=== PATIENT | female | born 1945 | race African-American/Black ===

== ENCOUNTER 2017-09-23 11:44 | Observation (INO) | payer MEDICARE ==
--- NOTE | 2017-09-23 12:44 | CT ---
CT BRAIN WITHOUT CONTRAST: History: Altered mental status, slurred speech. FINDINGS: No evidence of acute infarct, hemorrhage, midline shift, or abnormal extraaxial fluid collections are seen. The ventricular size is normal and the basilar cisterns patent. The bony calvarium is intact. The visualized paranasal sinuses and mastoid air cells are well aerated. IMPRESSION: No CT evidence of acute intracranial process. Findings were discussed over the telephone with ER physician, Dr. Jose Welsh, at 12:21 p.m. POS: OFF
[2017-09-23 13:12] LABS: #Lymphocytes 1.7 thou/uL (1.20-3.40); #Neutrophils 11.3 thou/uL (1.40-6.50); %Basophils 0.3 % (0.0-1.0); %Eosinophils 0.1 % (0.0-10.0); %Lymphocytes 11.9 % (21.0-51.0); %Monocytes 7.2 % (0.0-10.0); %Neutrophils 80.6 % (42.0-75.0); Hemoglobin 15.1 g/dL (12.0-16.0); Mean Corpuscular HGB CONC 33.2 g/dL (32.0-36.0); Mean Corpuscular Volume 93.4 fl (81.0-99.0); Mean Platelet Volume 7.7 fL (7.4-10.4); Platelet Count 227 thou/uL (130-400); RBC Distribution Width 13.3 % (11.5-14.5); Red Blood Cell (RBC) Count 4.87 mill/uL (4.20-5.40)
[2017-09-23 13:35] LABS: ALT (SGPT) 31 U/L (8-55); AST (SGOT) 47 U/L (5-34); Albumin 4.4 g/dL (3.4-4.8); Alkaline Phosphatase 78 U/L (40-150); Anion Gap 17 mmol/L (10-20); BUN (Urea Nitrogen) 12 mg/dL (9.8-20.1); Bilirubin, Total 0.6 mg/dL (0.2-1.2); Calc. Creatinine Clearance 0 mL/min (70-130); Calcium 10.2 mg/dL (7.8-10.44); Carbon Dioxide 21 mmol/L (23-31); Chloride 104 mmol/L (98-107); Estimated GFR-MDRD 76; Glucose 97 mg/dL (83-110); Potassium 3.3 mmol/L (3.5-5.1); Protein, Total 7.4 g/dL (6.0-8.3); Sodium 139 mmol/L (136-145)
[2017-09-23 13:45] LABS: Troponin I 0.034 ng/mL (< 0.028)
[2017-09-23 13:46] LABS: Bilirubin Negative (Negative); Blood, Urine Moderate (Negative); Clarity CLEAR (Clear); Glucose, Urine (Dipstick) Negative (Negative); Leukocyte Trace (Negative); Nitrite Negative (Negative); Protein, Urine (Dipstick) 30 mg/dL (Neg-Trace); Specific Gravity, Urine 1.019 (1.002-1.036); Urobilinogen 0.2 mg/dL (0.2-1.0); pH, Urine 5.5 (5.0-9.0)
[2017-09-23 13:47] LABS: CKMB 8.6 ng/mL (0-6.6)
[2017-09-23 13:48] LABS: Bacteria/HPF None Seen HPF (None Seen); Pathc Cast-AUWi Flag 1.88 (0-2.49)
[2017-09-23] MEDS ORDERED: Acetaminophen 500 MG TAB ONE (13:48)
[2017-09-23 13:52] LABS: PTT 24.8 SEC (22.9-36.1); Prothrombin Time 13.2 SEC (12.0-14.7)
[2017-09-23 13:58] LABS: Hyaline Casts/LPF NONE SEEN LPF (0-3 Hyaline); Renal Epithelial None Seen HPF (0-3); Transitional Epithelial NONE SEEN HPF (0-3)
[2017-09-23] MEDS ORDERED: Adacel (T-DAP) 0.5 ML VIAL ONE (15:31)
[2017-09-23] MEDS ORDERED: Ondansetron HCl/PF 4 MG/2 ML Vial IVP PRN (17:11)
[2017-09-23] MEDS ORDERED: Acetaminophen 325 MG TAB PO PRN (17:11)
[2017-09-23] MEDS ORDERED: Ondansetron ODT 4 MG TAB PO PRN (17:11)
[2017-09-23 17:21] VITALS: BMI 17.7
[2017-09-23 17:40] LABS: Troponin I 0.033 ng/mL (< 0.028)
[2017-09-23] MEDS: HYDROcodone/Acetaminophen 5/325 mg Tablet PO PRN ×2 (18:03→22:12)
[2017-09-23] MEDS: hydrALAZINE 20 MG/ML VIAL SLOW IVP PRN (18:04)
[2017-09-23 18:11] LABS: CKMB 5.9 ng/mL (0-6.6)
[2017-09-23 19:44] LABS: Troponin I 0.045 ng/mL (< 0.028)
[2017-09-23] MEDS: Famotidine 20 MG TAB PO SCH (20:36)
[2017-09-24 01:42] LABS: CKMB 3.7 ng/mL (0-6.6); Troponin I 0.035 ng/mL (< 0.028)
[2017-09-24] MEDS: hydrALAZINE 20 MG/ML VIAL SLOW IVP PRN (01:49)
[2017-09-24] MEDS: HYDROcodone/Acetaminophen 5/325 mg Tablet PO PRN (03:02)
[2017-09-24] MEDS: Famotidine 20 MG TAB PO SCH (08:14)
[2017-09-24] MEDS ORDERED: Meloxicam 7.5 MG TAB PO SCH (09:00)
[2017-09-24] MEDS ORDERED: Non-Formulary Item 1 EACH (Baclofen [Baclofen] 20 MG) PO SCH (09:00)
[2017-09-24] MEDS ORDERED: Amlodipine 10 MG TAB PO SCH (09:00)
[2017-09-24] MEDS ORDERED: Non-Formulary Item 1 EACH (Rosuvastatin Calcium [Crestor] 40 MG) PO SCH (09:00)
[2017-09-24] MEDS ORDERED: Losartan 25 MG TAB PO SCH (09:00)
[2017-09-24] MEDS ORDERED: Non-Formulary Item 1 EACH (Levothyroxine Sodium [Synthroid] 137 MCG) PO SCH (09:00)
[2017-09-24] MEDS ORDERED: Non-Formulary Item 1 EACH (Losartan Potassium [Cozaar] 100 MG) PO SCH (09:00)
[2017-09-24] MEDS ORDERED: Baclofen 10 MG TAB PO SCH (09:00)
[2017-09-24 12:21] VITALS: TEMP 98.3
[2017-09-24 14:08] VITALS: BP 133/63
[2017-09-24] MEDS ORDERED: Rosuvastatin 20 MG TAB PO SCH (21:00)
[2017-09-25] MEDS ORDERED: Levothyroxine Sodium 112 MCG TAB PO SCH (06:00)
[2017-09-25] MEDS ORDERED: Levothyroxine Sodium 25 MCG TAB PO SCH (06:00)
--- NOTE | 2017-09-25 06:30 | DIS ---
DATE OF ADMISSION: 09/23/2017 DATE OF DISCHARGE: 09/24/2017 DISCHARGE DIAGNOSES: 1. Postconcussive encephalopathy. 2. Hypertensive encephalopathy. 3. Hypertensive urgency. 4. Mechanical fall in same level. 5. Essential hypertension. 6. Hyperlipidemia. 7. Chronic pain. 8. Hypothyroidism. CONSULTATIONS: None. PROCEDURES: None. HISTORY AND PHYSICAL: Ms. Chaudhary is a 72-year-old -[place] female that tripped over her bed at home and fell into the floor striking her head. She walked to her neighbor's house and the [employer] bor called 911. EMS brought in the emergency department for evaluation. On arrival, she was hyperte nsive, she had bleeding laceration over her left eyebrow. This was sutured up. She was given some h ydralazine for her blood pressure and we were subsequently called for admission for monitoring. She still remains somewhat confused. HOSPITAL COURSE: The patient seen and examined by me in the Emergency Department, she did have some confusion was disoriented to date, president, but was oriented to person and situation. She was plac ed in observation. She was started on her home medications with p.r.n. hydralazine to keep her blood pressure below 170 and was watched overnight. Overnight 09/15/2017 to 09/24/2017, she did well. Heart rate remained normal, blood pressure normali zed with her home medications. In the morning her mental status, she was alert and oriented x3 and w as stable for discharge. PHYSICAL EXAMINATION: The patient was seen and examined on the day of discharge. Discharge plan and disposition was discussed with the patient face to face bedside. DISCHARGE MEDICATIONS: 1. Amlodipine 10 mg daily. 2. Baclofen 20 mg p.o. t.i.d. 3. Hydrocodone/APAP 10/325 one q.6 hours. 4. Levothyroxine 137 mcg p.o. daily. 5. Losartan 100 mg p.o. daily. 6. Meloxicam 7.5 mg p.o. b.i.d. 7. Metoprolol succinate 50 mg p.o. daily. 8. Crestor 40 mg daily. 9. Bactrim DS 1 p.o. b.i.d. if she was still taking. She does not recall she was not at this time. FOLLOWUP APPOINTMENT: Tr Garner M.D., her primary care physician within a week. DISCHARGE CONDITION: Stable. DISPOSITION: Will be discharged home via private vehicle. DISCHARGE ACTIVITY: Per cardiopulmonary limits. DISCHARGE DIET: Heart healthy recommended. INSTRUCTIONS: Return to emergency department for worsening headache or change in condition.
== END 2017-09-24 13:13 | disposition home or self-care (01) ==
LOC: ERS 11:44 → 2SW 16:09
PROVIDERS: ADMIT Internal Medicine Infectious Disease; ATTEND Internal Medicine Infectious Disease
DX: S06.0X9A Concussion with loss of consciousness of unspecified duration, initial encounter (principal); I16.0 Hypertensive urgency; I10 Essential (primary) hypertension; E78.5 Hyperlipidemia, unspecified; E03.9 Hypothyroidism, unspecified; G89.29 Other chronic pain; Z88.5 Allergy status to narcotic agent; Z79.891 Long term (current) use of opiate analgesic; W01.198A Fall on same level from slipping, tripping and stumbling with subsequent striking against other object, initial encounter
CPT/HCPCS: 12011; 36415; 36416; 70450; 80053; 81003; 81015; 82553; 84484; 85025; 85610; 85730; 90471; 90715; 93005; G8978-GP-CI; G8979-GP-CI; G8980-GP-CI; G8987-GO-CI; G8988-GO-CI; G8989-GO-CI; J0360

== ENCOUNTER 2017-09-26 14:23 | Inpatient (IN) | payer MEDICARE ==
[~2017-09-26 14:23] MED LIST: Adenosine 6 MG/2 ML VIAL ONE; Dextrose 50% Abboject 50 ML SYRINGE ONE; EPINEPHrine 1 MG/10 ML Abboject SYRINGE ONE; Sodium Bicarb 50 MEQ/50 ML Abboject 8.4% SYRINGE ONE
[2017-09-26 15:19] LABS: Mean Corpuscular HGB CONC 33.4 g/dL (32.0-36.0); Mean Corpuscular Hemoglobin 30.6 pg (27.0-31.0); Mean Corpuscular Volume 91.7 fl (81.0-99.0); Mean Platelet Volume 8.1 fL (7.4-10.4); Platelet Count 223 thou/uL (130-400); RBC Distribution Width 13.2 % (11.5-14.5); Red Blood Cell (RBC) Count 4.89 mill/uL (4.20-5.40); White Blood Cell (WBC) Count 18.2 thou/uL (4.8-10.8)
[2017-09-26 15:32] LABS: ALT (SGPT) 54 U/L (8-55); AST (SGOT) 124 U/L (5-34); Albumin 4.1 g/dL (3.4-4.8); Alkaline Phosphatase 133 U/L (40-150); Anion Gap 22 mmol/L (10-20); BUN (Urea Nitrogen) 38 mg/dL (9.8-20.1); Bilirubin, Total 0.9 mg/dL (0.2-1.2); Calc. Creatinine Clearance 0 mL/min (70-130); Calcium 9.3 mg/dL (7.8-10.44); Carbon Dioxide 18 mmol/L (23-31); Chloride 100 mmol/L (98-107); Estimated GFR-MDRD 21; Globulin 2.6 g/dL (2.4-3.5); Glucose 69 mg/dL (83-110); Lipase 40 U/L (8-78); Potassium 4.2 mmol/L (3.5-5.1); Protein, Total 6.7 g/dL (6.0-8.3); Sodium 136 mmol/L (136-145)
[2017-09-26 15:35] LABS: Bilirubin Large (Negative); Blood, Urine Moderate (Negative); Clarity CLOUDY (Clear); Glucose, Urine (Dipstick) Negative (Negative); Leukocyte Negative (Negative); Nitrite Negative (Negative); Protein, Urine (Dipstick) 100 mg/dL (Neg-Trace); Specific Gravity, Urine 1.025 (1.002-1.036); Urobilinogen 0.2 mg/dL (0.2-1.0)
[2017-09-26 15:36] LABS: Lymphocytes 2 % (21-51); MDiff Complete? YES; Monocytes 2 % (0-10); Neutrophil 96 % (42-75); PLT Morphology Comment Appears Adequate
[2017-09-26 15:37] LABS: Bacteria/HPF None Seen HPF (None Seen)
[2017-09-26 15:37] LABS: Acetaminophen Less than 6.0 mcg/mL (10.0-30.0); Alcohol Less than 10 mg/dL (Less than 10); Salicylate Less than 8.0 mg/dL (15.0-30.0)
[2017-09-26 15:40] LABS: Hyaline Casts/LPF >50 HYALINE CAST LPF (0-3 Hyaline)
[2017-09-26 15:41] LABS: Pathc Cast-AUWi Flag 14.97 (0-2.49)
[2017-09-26 15:43] LABS: Cocaine Metabolite Screen Not Detected (NotDetected); Medtox Reader # READER 1; Methamphetamine Not Detected (NotDetected); Opiate Screen Detected (NotDetected); Phencyclidine (PCP) Not Detected (NotDetected); THC/Cannabinoid Screen Not Detected (NotDetected)
[2017-09-26 15:43] LABS: Troponin I 0.026 ng/mL (< 0.028)
[2017-09-26 15:44] LABS: Amphetamine Not Detected (NotDetected); Barbiturates Screen Not Detected (NotDetected); Benzodiazepine Screen Not Detected (NotDetected); Medtox Control Line Valid? VALID (VALID); Methadone Not Detected (NotDetected); Oxycodone Screen Not Detected (NotDetected); Tricyclic Screen Not Detected (NotDetected)
[2017-09-26 15:45] LABS: CK (CPK) 4109 U/L (29-168)
[2017-09-26 15:50] LABS: Other Casts/LPF 4-6 WAXY CASTS LPF (0-3 Hyaline)
[2017-09-26 15:51] LABS: CKMB 41.9 ng/mL (0-6.6)
[2017-09-26 15:51] LABS: Crystals/HPF 1+ AMORPH URATES HPF (Negative)
[2017-09-26 15:53] LABS: Renal Epithelial None Seen HPF (0-3); Transitional Epithelial 0-3 HPF (0-3)
[2017-09-26] MEDS ORDERED: EPINEPHrine 1 MG/ML AMP ONE (16:51)
[2017-09-26] MEDS ORDERED: EPINEPHrine 1 MG/10 ML Abboject SYRINGE ONE (16:54)
[2017-09-26] MEDS ORDERED: fentaNYL Citrate/PF 2,000 MCG in Sodium Chloride 0.9% 60 ML IV SCH ×2 (17:00→22:51)
--- NOTE | 2017-09-26 17:04 | RAD ---
CHEST ONE VIEW 09/26/17 HISTORY: Altered mental status. COMPARISON: None. FINDINGS: Lungs appear relatively clear. No pneumothorax or effusion. Cardiac silhouette and mediastinal contou rs appear within normal limits. IMPRESSION: No acute intrathoracic abnormality. Right upper quadrant surgical clips. POS: [facility]
[2017-09-26 17:24] LABS: Actual Bicarbonate (HCO3a) 17.4 mEq/L (22-26); Base Excess (BEa) -5.5 mEq/L (0 (+/-) 2.5); CO2 Tension 26.3 mmHg (35.0-45.0); Hematocrit-ABG 31.6 % (36.0-47.0); O2 Tension (PaO2) 116.9 mmHg (80.0-100.0); pH, Arterial 7.44 (7.35-7.45)
[2017-09-26 17:25] LABS: ALV-art Gradient 206.725 (0-20); Analyzer IN Cardio ER; Calcium, Ionized 1.1 mmol/L (1.12-1.30); Puncture Site LBA
[2017-09-26] MEDS ORDERED: Norepinephrine 8 MG/250 ML BAG IVPB SCH ×2 (17:30→20:00)
[2017-09-26] MEDS ORDERED: Piperacillin/Tazobactam 3.375 GM VIAL ONE (18:14)
[2017-09-26] MEDS ORDERED: Adacel (T-DAP) 0.5 ML VIAL ONE (18:25)
[2017-09-26 18:43] LABS: INR-International Normal Ratio 1.1; PTT 25.3 SEC (22.9-36.1); Prothrombin Time 13.8 SEC (12.0-14.7)
[2017-09-26 19:39] LABS: Lactic Acid 1.2 mmol/L (0.5-2.2)
[2017-09-26] MEDS ORDERED: DISCONTINUE PREVIOUS NARCOTIC PAIN MEDICATIONS AND BENZODIAZEPINES FS SCH ×2 (19:51→22:51)
[2017-09-26] MEDS ORDERED: Lorazepam 2 MG/ML VIAL SLOW IVP PRN ×2 (19:51→22:51)
[2017-09-26] MEDS ORDERED: Propofol 1,000 MG/100 ML VIAL IV PRN ×2 (19:51→22:51)
[2017-09-26] MEDS ORDERED: Fentanyl BOLUS 250 ML IVPB PRN ×2 (19:51→22:51)
--- NOTE | 2017-09-26 19:54 | RAD ---
AP VIEW OF THE CHEST: 09/26/17 INDICATION: Emergency examination and intubation FINDINGS: Since the comparison examination there has been placement of an endotracheal tube and gastric cathete r. There is a new right subclavian central venous catheter. No pneumothorax is evident. Heart size is accentuated by exam technique. No focal consolidation is evident. No pleural effusion is noted. No a cute osseous abnormality is evident. IMPRESSION: Interval intubation with gastric catheter and a right subclavian central venous catheter placement. T he right subclavian catheter tip projects to the region of the superior SVC. POS: [facility]
[2017-09-26] MEDS ORDERED: Ondansetron ODT 4 MG TAB SL PRN (19:55)
[2017-09-26] MEDS ORDERED: Ondansetron HCl/PF 4 MG/2 ML Vial IVP PRN ×2 (19:55→22:46)
[2017-09-26 20:21] VITALS: BMI 19.8
--- NOTE | 2017-09-26 20:35 | CT ---
NONCONTRAST CT OF THE BRAIN 09/26/17 INDICATION: History of altered mental status. COMPARISON: Prior exam dated 09/23/17. FINDINGS: No acute infarct, hemorrhage, or hydrocephalus is present. Mastoid air cells are clear. Skull is inta ct. Mild generalized cerebral atrophy is stable. IMPRESSION: 1. No acute intracranial abnormality. 2. Findings are called to Dr. Chaudhary at 7:07 p.m. on 09/26/17. POS: [facility]
[2017-09-26] MEDS: 1/2 NS w/KCL 20 mEq 1,000 ML IV SCH ×2 (20:57→22:10)
[2017-09-26] MEDS ORDERED: Norepinephrine 8 MG/0.9% NS 250 ML IVPB PRN (22:46)
[2017-09-26] MEDS ORDERED: Bisacodyl 5 MG TAB PO PRN (22:46)
[2017-09-26] MEDS ORDERED: Insulin Regular 300 UNITS/3 ML VIAL SC PRN (22:46)
[2017-09-26] MEDS ORDERED: Mag-Al 1200 mg/1200 mg/30 ML UDCUP PO PRN (22:46)
[2017-09-26] MEDS ORDERED: Milk Of Magnesia 30 ML UDCUP PO PRN (22:46)
[2017-09-26] MEDS ORDERED: CCU Electrolyte Replacement 1 EACH IVPB SCH (22:46)
[2017-09-26] MEDS ORDERED: Lacri-Lube Opth Oint 3.5 GM TUBE EA EYE PRN (22:46)
[2017-09-26] MEDS ORDERED: Sedation Protocol FS SCH (22:46)
[2017-09-26] MEDS ORDERED: hydrALAZINE 20 MG/ML VIAL SLOW IVP PRN (22:48)
[2017-09-26] MEDS ORDERED: Morphine 2 MG/ML SYRINGE SLOW IVP PRN (22:51)
[2017-09-26] MEDS ORDERED: Potassium Chloride 40 MEQ in Sodium Chloride 0.9% 250 ML 250 ML IVPB PRN (22:53)
[2017-09-26] MEDS ORDERED: CCU ELECTROLYTE REPLACEMENT PROTOCOL FS PRN (22:53)
[2017-09-26] MEDS ORDERED: Potassium Chloride 40 MEQ in Premix Bag 1 BAG IVPB PRN (22:53)
[2017-09-26] MEDS ORDERED: Magnesium Oxide 400 MG TAB PO PRN ×2 (22:53)
[2017-09-26] MEDS ORDERED: Magnesium 2 GM/NS 0.9% 100 ML 2 GM in Premix Bag 1 BAG IVPB PRN (22:53)
[2017-09-26] MEDS ORDERED: Potassium Phosphate 12 MMOL in Sodium Chloride 0.9% 250 ML 250 ML IV PRN (22:53)
[2017-09-26] MEDS ORDERED: Potassium Phosphate 15 MMOL in Sodium Chloride 0.9% 250 ML 250 ML IV PRN (22:53)
[2017-09-26] MEDS ORDERED: Potassium Phosphate 9 MMOL in Sodium Chloride 0.9% 100 ML IVPB PRN (22:53)
[2017-09-26] MEDS ORDERED: Potassium Chloride 20 MEQ TAB PO PRN (22:53)
[2017-09-26] MEDS ORDERED: Sodium Chloride 0.9% 1,000 ML IV SCH (23:00)
[2017-09-26] MEDS ORDERED: VANCOMYCIN/ZOSYN IVPB PRN (23:18)
[2017-09-26 23:29] LABS: Lactic Acid 1.4 mmol/L (0.5-2.2)
[2017-09-26] MEDS ORDERED: Piperacillin/Tazobactam 3.375 GM in Sodium Chloride 0.9% 100 ML IVPB SCH (23:59)
[2017-09-27] MEDS: Sodium Chloride 0.9% 1,000 ML IV SCH ×2 (02:23→06:38)
--- NOTE | 2017-09-27 03:28 | HP ---
DATE OF ADMISSION: 09/26/2017 PRIMARY CARE PHYSICIAN: Dr. Tr Garner. CHIEF COMPLAINT: Unresponsiveness and found down. HISTORY OF PRESENTING ILLNESS: Ms. Chaudhary is a 72-year-old -Swedish female with past medica l history of hypertension, dyslipidemia, chronic pain, and hypothyroidism, who was recently admitted to our facility just 2 days ago on 09/23/2017 and was discharged on 09/24/2017 for fall and concussio n. She was at that time admitted overnight and was observed after she has fallen at home after gaurav ing and had hit her head. She was hypertensive at that time and was treated for hypertensive encepha lopathy along with postconcussive encephalopathy and was discharged home the next day. The patient was brought into the emergency room after she was found down outside her house. EMS brou ght the patient in all the history is obtained by record review as there is no family available at [facility] and the patient is intubated. According to the EMS, the patient was found covered in ants and she had lots of grass in her hair. S master received Narcan via EMS, which helped improve her symptoms, but when she was brought into the [facility] room, her GCS scale was 5. She was also hypothermic upon presentation; however, maintaining no rmal blood pressure and heart rate. She was not answering any questions and there was concern that s he was not protecting her airway, so she was electively intubated. Prior to intubation, she was foun d to have spontaneous movement of all 4 extremities without any focal deficits. Temperature upon pre sentation was 94.6, blood pressure was 134/109 with a pulse of 76, saturating 96% on room air. She h ad evidence of leukocytosis as well as rhabdomyolysis with elevated creatine kinase over 4000 on exam ination. She was also found to be in acute renal failure with a BUN of 38, creatinine of 2.69. She had lactic acidosis with lactic acid of 3.9. Her urine toxicology was positive for opiates. A CT sc an of the brain was done in the emergency room, which was unremarkable for any acute changes. Also, a chest x-ray was done, which did not show any evidence of infiltrates. She underwent placement of t he right subclavian central line along with intubation and placement of a Dobbhoff tube. She receive d vancomycin and Zosyn for elevated lactic acidosis and cultures were obtained. She is now being adm itted to the Critical Care Unit in the intubated state for unresponsiveness and likely sepsis. She i s currently hemodynamically stable and her most recent temperature is 98.2 after she was treated with Taylor Hugger in the emergency room. PAST MEDICAL HISTORY: 1. Hypertension. 2. Dyslipidemia. 3. Chronic pain. 4. Hypothyroidism. PAST SURGICAL HISTORY: Unknown as it is not documented in the EMR and the patient is not able to pro vide any history at this time. SOCIAL HISTORY: History noticed for smoking cigarettes. No alcohol or drug abuse according to the E MR. ALLERGIES: MORPHINE. CURRENT MEDICATIONS: As per the emergency room record, metoprolol succinate 50 mg daily, meloxicam 7 .5 twice a day, amlodipine 10 mg daily, [place] 10/325 every 6 hours p.r.n., baclofen 20 mg t.i.d., Elvi trim double strength once daily, Crestor 40 mg daily, levothyroxine 137 mcg daily and Cozaar 100 mg d aily. REVIEW OF SYSTEMS: Unobtainable as the patient is sedated and intubated currently. PHYSICAL EXAMINATION: VITAL SIGNS: Upon presentation, temperature 94.6, blood pressure 134/109, pulse of 76, respirations 22, saturating 96% on room air. Most recent vital signs include blood pressure 110/48, heart rate of 76, and oxygen saturation 94% on ventilator. GENERAL: She is currently intubated and sedated. She opens her eyes spontaneously, but is not respo nding to any verbal or painful stimulus. She is currently on propofol for sedation as well. HEENT: Mucous membrane appears dry. No oropharyngeal exudate or erythema. Endotracheal tube in pos ition. She has significant glaucoma and evidence of cataract in the eyes bilaterally. Pupils are mi nimally responsive to light. NECK: Without any JVD or bruits or masses. CHEST: Clear to auscultation bilaterally without any wheezing, rales or rhonchi. CARDIOVASCULAR: Rate and rhythm is regular without any murmur, rubs or gallops. ABDOMEN: Soft, nontender, mildly distended. Positive bowel sounds. EXTREMITIES: Free of any cyanosis, clubbing, or edema. SKIN: Reveals various bruises and abrasions to ankles and knees. NEUROLOGICAL: Not able to assess as the patient is intubated and sedated. She seems to have a foot drop bilaterally. PSYCHIATRIC: Cannot be evaluated because of sedation. LABORATORY DATA AND X-RAY FINDINGS: CBC shows WBCs at 18.2 with 96% neutrophils, otherwise unremarka ble. Serum chemistries show bicarbonate 18, anion gap 22, BUN 38, creatinine 2.69, blood sugar 69 wi th repeat blood sugar of 80, lactic acid 3.9, creatine kinase 4109, AST 124. CK-MB 41.9. Troponin n ormal at 0.026. Lipase and TSH normal. Urinalysis showed multiple squamous epithelial cells, rbc's, wbc's. Salicylate level normal. Plasma alcohol level less than 10. Chest x-ray by my review has n o evidence to suggest pleural effusion, edema or infiltrate. CT scan of the brain is negative for an y acute intracranial pathology by my review. A 12-lead EKG by my review shows nonspecific ST and T-w ave changes without any evidence to suggest ACS. Normal sinus rhythm at 62 beats per minute. IMPRESSION AND PLAN: 1. Acute encephalopathy, most likely secondary to opioid overdose as the patient seems to be taking multiple muscle relaxant opioids at home. However, because of lactic acidosis and hypothermia, sepsi s can also not be ruled out. Most likely the hypothermia is a result of exposure lying outside in th e field, but the cultures have been obtained and we will continue the empiric antibiotics, namely van comycin and Zosyn. She will be admitted to the Critical Care Unit. She is currently intubated and w e will continue ventilatory support and request a Pulmonary Medicine consultation for management of t he same. Continue IV fluids for hydration purposes. CCU, electrolyte and sedation protocols have be en ordered. 2. Rhabdomyolysis. This secondary to fall and muscle damage. She will be continued on saline gener ously and we will repeat CK-MB in the morning. 3. Acute renal insufficiency. The patient had normal renal function two days ago at the time of her last hospitalization. This is most likely secondary to acute rhabdomyolysis. We will continue with generous IV fluid hydration and monitor renal function at close basis. If her renal function does n ot continue to improve, we will consult Nephrology. Monitor I's and O's strict. Avoid any nephrotox ic medications. 4. Anion gap metabolic acidosis. This is secondary to #2. Repeat labs in the morning. At this juan e, no indication for bicarbonate. 5. Lactic acidosis. This is most likely secondary to tissue ischemia as well as lactic acidosis aft er she was unresponsive for an unknown period of time. We will repeat the lactic acid in the morning and continue empiric antibiotics and follow the results of the final cultures for this woman as she also has leukocytosis. 6. Sepsis, unknown source with elevated lactic acidosis and leukocytosis, sepsis cannot be ruled out at this time. As above, continue IV antibiotics and we will consult Infectious Disease in the [facility] as well. Follow the results of the cultures. 7. History of hypothyroidism. Resume home medications when she is awake and able to take oral medic ations versus started the Dobbhoff. 8. History of hypertension, currently controlled. Use p.r.n. antihypertensives for now. Avoid prec ipitous drop in the blood pressure at this time. 9. Add deep venous thrombosis and gastrointestinal prophylaxis. 10. Skin care and decubitus care per the CCU protocol and nursing protocol. 11. Code status: FULL CODE, presumed as there is no family at this time available, the patient is a lready intubated. DISPOSITION: Ms. Chaudhary is currently being readmitted to CCU for unresponsiveness, possible sepsis, rhabdomyolysis and renal failure. Estimated length of stay is at least 3-4 midnights. Level of com plexity is 3. Decision making level is 3. Total time spent in admission including xiqi-xy-goev is 37 minutes.
[2017-09-27 04:50] LABS: ALT (SGPT) 37 U/L (8-55); AST (SGOT) 92 U/L (5-34); Albumin 2.4 g/dL (3.4-4.8); Alkaline Phosphatase 132 U/L (40-150); Anion Gap 12 mmol/L (10-20); BUN (Urea Nitrogen) 37 mg/dL (9.8-20.1); Band 27 % (5-11); Bilirubin, Total 0.5 mg/dL (0.2-1.2); CK (CPK) 2477 U/L (29-168); Calc. Creatinine Clearance 23 mL/min (70-130); Calcium 7.2 mg/dL (7.8-10.44); Carbon Dioxide 17 mmol/L (23-31); Chloride 110 mmol/L (98-107); Estimated GFR-MDRD 32; Globulin 1.7 g/dL (2.4-3.5); Glucose 90 mg/dL (83-110); Hemoglobin 12.2 g/dL (12.0-16.0); Lymphocytes 7 % (21-51); MDiff Complete? YES; Mean Corpuscular HGB CONC 34.1 g/dL (32.0-36.0); Mean Corpuscular Hemoglobin 31.6 pg (27.0-31.0); Mean Corpuscular Volume 92.5 fl (81.0-99.0); Mean Platelet Volume 8.4 fL (7.4-10.4); Monocytes 8 % (0-10); Neutrophil 58 % (42-75); Platelet Count 165 thou/uL (130-400); Potassium 3.9 mmol/L (3.5-5.1); Protein, Total 4.1 g/dL (6.0-8.3); RBC Distribution Width 13.1 % (11.5-14.5); Red Blood Cell (RBC) Count 3.87 mill/uL (4.20-5.40); Sodium 135 mmol/L (136-145)
[2017-09-27] MEDS: Piperacillin/Tazobactam 2.25 GM in Sodium Chloride 0.9% 100 ML IVPB SCH ×2 (05:29→11:46)
[2017-09-27] MEDS ORDERED: Sodium Chloride 0.9% 500 ML IV SCH (06:15)
[2017-09-27] MEDS ORDERED: Vancomycin HCl 1 GM in Premix Bag 1 BAG IVPB SCH (08:00)
[2017-09-27] MEDS ORDERED: Vancomycin HCl 500 MG in Sodium Chloride 0.9% 100 ML IVPB SCH (09:00)
[2017-09-27] MEDS ORDERED: Prevnar 13-Val Conj/PF 0.5 ML SYRINGE IM ONE (09:00)
[2017-09-27] MEDS ORDERED: Famotidine/PF 20 mg/2ml Vial SLOW IVP SCH (09:00)
[2017-09-27] MEDS ORDERED: FLU VACC TS2017-18 (>65YR) 0.5 ML SYRINGE IM ONE (09:00)
[2017-09-27] MEDS ORDERED: Sodium Chloride 0.45% 1,000 ML IV SCH (12:15)
--- NOTE | 2017-09-27 12:25 | CON ---
DATE OF CONSULTATION: 09/27/2017 SERVICE: Pulmonary Medicine. REASON FOR CONSULTATION: ICU patient. HISTORY OF PRESENT ILLNESS: Patient is a 72-year-old -[place] female. She recently was in the hospital from mechanical fall. She struck her head. She was observed. She had elevated blood pressure. She did not have any intracranial lesions present at that time. Ultimately, she was discharged from the hospital because she returned to her usual state of health under her own strength. Two days later, she was found down in a field. She is essentially unresponsive and intubated in the field. She was brought here to the emergency department. Multiple laboratory abnormalities were present at that time. PAST MEDICAL HISTORY: 1. Hypertension. 2. Dyslipidemia. 3. Hypothyroidism. 4. Chronic pain. PAST SURGICAL HISTORY: Unknown. SOCIAL HISTORY: Previously, she smokes cigarettes. No alcohol or illicit drug use is reported. FAMILY HISTORY: Noncontributory. ALLERGIES: No known drug allergies. MEDICATIONS: List of her inpatient medications were reviewed. No specific updates were made at this time. REVIEW OF SYSTEMS: This cannot be obtained because patient is currently obtunded. PHYSICAL EXAMINATION: VITAL SIGNS: Currently afebrile, pulse 99, blood pressure 85/52, respirations 25, saturation 89%, though it is difficult to sampler pickup the pulse oximetry. This is on 47% FiO2 and a PEEP of 7. HEENT: Normocephalic, atraumatic. Sclerae are white. Conjunctivae pink. Oral and nasal mucosa is moist without lesions. LUNGS: Clear to auscultation bilaterally. There are no wheezing, rhonchi or crackles appreciated. HEART: Normal rate, regular. ABDOMEN: Rigid. Bowel sounds are hypoactive. GENITOURINARY: Gutierrez catheter in place. NEUROLOGIC: She does not withdraw from noxious stimuli in all 4 extremities. She over-breathes the ventilator comfortably. She demonstrates a cough and gag with deep suctioning. LABORATORY DATA: WBC 10.0, neutrophil count is 58% with additional 27% bands. INR 1.1. A pH 7.44, pCO2 26, pO2 116. Anion gap 12, down from 22, bicarbonate 17 and roughly stable. Creatinine has improved dramatically to 1.89. Basic metabolic profile is otherwise unremarkable. CK is down trending to 22. Lactate has remained negative. Ammonia level is negative. Liver function studies are otherwise unremarkable/improving. Urinalysis is essentially unremarkable except for large bilirubin and moderate blood despite there not being many red blood cells. Alcohol, acetaminophen, salicylate are unremarkable. Urine drug screen is positive for opiates. Blood culture is negative. IMAGIN. CT of the brain demonstrates no acute intracranial abnormality. 2. Chest x-ray demonstrates endotracheal tube is roughly 1-2 cm above the level of the ramakrishna. There is an enteric catheter coursing midline, but I cannot see exactly where it terminates. There is no focal consolidating infiltrate present. Right subclavian central venous catheter terminates in likely superior vena cava. ASSESSMENT: 1. Acute hypoxic respiratory failure. 2. Acute kidney injury, resolving. 3. Septic shock, suspected. 4. Metabolic encephalopathy. PLAN: We will continue our supportive care moving forward. Hopefully, if she clears her metabolic derangement, we will start seeing some improvement in her neurologic status. If we do not, an LP and MRI may need to be considered. I have made multiple adjustments to the ventilator. Sedating medications will be interrupted. Pulmonary or Critical Care will continue to follow while the patient remains in the ICU. CRITICAL CARE TIME: 30 minutes. MTDD
--- NOTE | 2017-09-27 13:28 | PDOC.PN ---
- Subjective Encounter Start Date: 09/27/17 Encounter Start Time: 11:15 -: non-verbal PT seen and examine,d chart reviewed. I am assuming care today, this is my first visit with this patient for this stay/episode of care Found down at home in yard, EMS intubated, brought in. Some improvement after Narcan. admitted ot ICU Pt was on fentanyl gtt overnigh,t just sopped, pt opening eyes to verbal stim, but not much else yet. BP borderline low to normal. Cr up compared to D/C a few days ago, CK was elevated. pt remains orally intubated on the ventilator - Objective MAR Reviewed: Yes Vital Signs & Weight: Vital Signs (12 hours) Temp Pulse Resp BP Pulse Ox 09/27/17 12:00 99.1 F 24 H 09/27/17 10:27 98 107/48 L 09/27/17 10:00 22 H 09/27/17 08:00 18 09/27/17 07:09 99.3 F 87 18 99/39 L 93 L 09/27/17 07:00 99.3 F 09/27/17 04:00 99.1 F 20 09/27/17 02:34 85 Weight Weight 119 lb 9.6 oz Most Recent Monitor Data Heart Rate from ECG 97 NIBP 94/38 NIBP BP-Mean 67 Respiration from ECG 24 SpO2 89 I&O: 09/26/17 09/27/17 09/28/17 06:59 06:59 06:59 Intake Total 1238.3 0 Output Total 640 100 Balance 598.3 -100 Result Diagrams: 09/27/17 04:10 09/27/17 04:10 Additional Labs: Accuchecks 09/26/17 21:02 POC Glucose 80 Radiology Reviewed by me: Yes EKG Reviewed by me: Yes Phys Exam - Physical Examination Constitutional: NAD HEENT: PERRLA, moist MMs, sclera anicteric, oral pharynx no lesions Neck: no nodes, no JVD, supple, full ROM Respiratory: no wheezing, no rales, no rhonchi, clear to auscultation bilateral Cardiovascular: RRR, no significant murmur, no rub Gastrointestinal: soft, non-tender, no distention, positive bowel sounds Musculoskeletal: no edema, pulses present Lymphatic: no nodes Skin: no rash, normal turgor, cap refill <2 seconds Dx/Plan (1) Metabolic encephalopathy Code(s): G93.41 - METABOLIC ENCEPHALOPATHY Status: Acute Comment: fentayl stopped, allowing to wake up and see (2) Rhabdomyolysis Code(s): M62.82 - RHABDOMYOLYSIS Status: Acute Qualifiers: Rhabdomyolysis type: non-traumatic Qualified Code(s): M62.82 - Rhabdomyolysis Comment: likely form being down. less than 48 hours. IV fluids, recheck in AM (3) Fall on same level Code(s): W18.30XA - FALL ON SAME LEVEL, UNSPECIFIED, INITIAL ENCOUNTER Status : Acute Qualifiers: Encounter type: initial encounter Qualified Code(s): W18.30XA - Fall on same level, unspecified, initial encounter Comment: pt fell agian, down in yard. (4) Acute hypoxemic respiratory failure Code(s): J96.01 - ACUTE RESPIRATORY FAILURE WITH HYPOXIA Status: Acute Comment: orally intubated, stop sedation, watch, extubate when possible (5) Essential hypertension Code(s): I10 - ESSENTIAL (PRIMARY) HYPERTENSION Status: Chronic - Plan cont current plan of care, continue antibiotics, respiratory therapy * .
[2017-09-27] MEDS ORDERED: EPINEPHrine 1 MG/ML AMP ONE (14:31)
[2017-09-27 15:05] LABS: CO2 Tension 24.5 mmHg (35.0-45.0); pH, Arterial 7.03 (7.35-7.45)
[2017-09-27 15:06] LABS: Actual Bicarbonate (HCO3a) 6.3 mEq/L (22-26); Hematocrit-ABG 32.9 % (36.0-47.0); Hemoglobin (Hb) 10.7 g/dL (12.0-16.0); O2 Tension (PaO2) 91.7 mmHg (80.0-100.0)
[2017-09-27] MEDS ORDERED: Sodium Bicarb 50 MEQ/50 ML Abboject 8.4% SYRINGE ONE ×2 (15:14→15:15)
[2017-09-27 15:24] LABS: Anion Gap 27 mmol/L (10-20); BUN (Urea Nitrogen) 43 mg/dL (9.8-20.1); Calc. Creatinine Clearance 18 mL/min (70-130); Calcium 6.2 mg/dL (7.8-10.44); Carbon Dioxide 13 mmol/L (23-31); Chloride 111 mmol/L (98-107); Estimated GFR-MDRD 24; Magnesium 2.1 mg/dL (1.6-2.6); Potassium 5.5 mmol/L (3.5-5.1); Sodium 145 mmol/L (136-145)
[2017-09-27 15:31] LABS: Glucose 19 mg/dL (83-110); Phosphorus 10.8 mg/dL (2.3-4.7)
[2017-09-27 15:36] VITALS: BP 106/48
[2017-09-27 15:37] LABS: ALV-art Gradient 590.675 (0-20); Calcium, Ionized 0.9 mmol/L (1.12-1.30); Puncture Site LFA
[2017-09-27 15:59] LABS: Lactic Acid Greater than 13.4 mmol/L (0.5-2.2)
[2017-09-27] MEDS ORDERED: Calcium Chloride 1 GM/10 ML Abboject SYRINGE IVP SCH (16:00)
[2017-09-27 16:26] VITALS: TEMP 99
--- NOTE | 2017-09-27 16:30 | RAD ---
CHEST ONE VIEW: History: Post CPR. Comparison: Prior day. FINDINGS: Patient is intubated with the endotracheal tube tip above the ramakrishna approximately 5 cm. Central veno us catheter is in place with the tip in the superior SVC. Enteric tube is in place with the tip below the diaphragm and out of the field of view. Defibrillator pads project over the chest. No pneumothor ax. IMPRESSION: New defibrillator pads, otherwise no significant change in radiographic appearance of the chest. POS: [facility]
--- NOTE | 2017-09-28 08:51 | CON ---
DATE OF CONSULTATION: 09/27/2017 REASON FOR CONSULTATION: Sepsis. HISTORY OF PRESENT ILLNESS: A 72-year-old patient recently admitted with a history of hypertension, dyslipidemia and hypothyroidism. She was here at the end of August after a fall and concussion and sh e was discharged with diagnosis of postconcussive encephalopathy, hypertensive encephalopathy and hyp ertensive urgency. Discharge meds included Norvasc, baclofen, hydrocodone, levothyroxine, losartan, metoprolol, Crestor, and Bactrim. It is not clear what the indication for the baclofen was. After g oing home, she was found outside her house, not clear who found her, she was covered in ants and had grass in her hair and was given Narcan and then brought to the emergency room. [place] coma scale wa s 5. She had hypothermia, but was maintaining blood pressure and heart rate. She was electively int ubated to protect her airway. She had movement in all 4 extremities, but did not open her eyes initi ally. BP done was 134/109, pulse 76, O2 sat 96%. There was evidence of moderate rhabdomyolysis, venus kocytosis with left shift and creatinine up to 2.69 and l[address] acid 3.9. CT of brain did not show an y acute changes. Chest x-ray with no infiltrates. A right subclavian central line was placed in add ition to intubation and Dobbhoff tube placement. She was given broad spectrum coverage. PAST MEDICAL HISTORY: Includes hypertension, dyslipidemia, chronic pain, hypothyroidism. PAST SURGICAL HISTORY: Not available. SOCIAL HISTORY: Positive smoking. ALLERGIES: MORPHINE. CURRENT MEDICATIONS: Maalox, DuoNeb, Dulcolax, Pepcid, Apresoline, Humulin insulin, Zofran, Zosyn, a nd vancomycin. PHYSICAL EXAMINATION: VITAL SIGNS: T-max 99.3, blood pressure 106/48, pulse 79, respiratory rate 32. She was on CPAP at t he time of the exam and O2 sats were 93%-94%. SKIN: Shows areas of excoriation with superficial skin necrosis in lower extremities around the knee s. There is an area of abrasion in the dorsal aspect of left first toe and there is an area of ulcer ation with superficial skin necrosis in left lateral frontal region. The patient has a subclavian ce ntral line and Gutierrez catheter. I's and O's are positive 598. Urinary output 540 mL, weight 119 poun ds. HEENT: The patient is obviously emaciated with temporal wasting and eye movements are present. Ther e is no nystagmus. There is evidence of abrasion of right cornea. The left pupil is 2 mm. The righ t is 1 mm and sluggishly reactive. Oral cavity is dry with a few teeth remaining in place. NECK: Supple. LUNGS: With symmetric air entry. HEART: S1, S2, regular rate, no obvious crackles. ABDOMEN: Nondistended, soft. There is a midline old scar from prior surgical procedure extending fr om the xiphoid to the lower abdomen midline. No bladder distention. EXTREMITIES: No joint inflammatory activity noted. Pulses are diminished dorsalis pedis. She has c ool extremities with some early cyanosis of the tips of the digits. NEUROLOGIC: She does not establish eye contact. Does not follow commands. LABORATORY DATA AND IMAGING DATA: White cell count is down from 18,000-10,000, hemoglobin 12, platel ets 165, 27% bands, INR 1.1, pH 7.03, pCO2 24, pO2 91 and creatinine is up to 2.39 from admission. L actic acid 13.4. Urinalysis with 4-6 wbc's. Current blood pressure 106/48 on pressors and Levophed. We will repeat chest x-ray with no infiltrates and right subclavian central line. ASSESSMENT: 1. Hypertension. 2. Malnutrition. 3. Recurrent episodes of falls. 4. Chronic baclofen prescription for uncertain indication. 5. Rhabdomyolysis. 6. Sepsis with septic shock. DISCUSSION: 1. Differential diagnosis includes recurrent falls secondary to cardiac arrhythmia versus medication -induced hypotension or weakness secondary to baclofen administration versus bacteremia from undisclo sed site which is not apparent in the clinical laboratory evaluation. Primary cardiac arrhythmia wit h hypotension is possible. She seems to have significant malnutrition. Micronutrient deficiency can be associated with various abnormalities including encephalopathy, visual disturbances and recurrent falls. She may have peripheral vascular disease and undisclosed coronary artery disease. At this p oint, she should obviously appear to be a fairly critical situation with septic shock. We will delmy nue on broad spectrum coverage. 2. Advanced directives needed to be discussed with family members. Further evaluation will be scotty ed out if she improves and stabilizes her clinical situation.
--- NOTE | 2017-09-28 12:13 | DIS ---
DATE OF ADMISSION: 09/26/2017 DATE OF : 09/27/2017 CAUSE OF : 1. Cardiac arrest. 2. Acute hypoxic respiratory failure. 3. Anoxic encephalopathy. CONSULTATION: Pulmonary Critical Care, Dr. Chalo Larson. PROCEDURE: Code blue, 09/27/2017 at 1500 to 1523. HOSPITAL COURSE: Ms. Chaudhary was a 72-year-old female admitted last night after being found down. S he has been recently here for a head injury and fall. She had recovered from that and was sent home in stable condition. She was found down in her yard for an unknown length of time by neighbors and EMS was activated. She was intubated in the field and brought to the emergency department. HOSPITAL COURSE: The patient was seen and examined in the ER. We were called for admission. The piyush ludwig was continued on the ventilator and admitted to ICU. She was seen by me earlier this morning a nd was weaning off sedation. Promptly at 1500 hours, she went into pulseless electrical activity and a code blue was called. She received 2 amps of bicarbonate and CPR, and had returned to spontaneous circulation around [address] Larson spoke with the family around 1530 hours and made the pat ient DNR. She subsequently continued decline and passed at 1619 hours. [facility] [place] and appropriate preparations were arranged.
== END 2017-09-27 16:19 | disposition expired | DRG 917 ==
LOC: ERS 14:23 → CCU 19:29
PROVIDERS: ADMIT Internal Medicine; ATTEND Internal Medicine
PROC: 0BH17EZ Insertion of Endotracheal Airway into Trachea, Via Natural or Artificial Opening (ICD-10-PCS; 2017-09-26)
PROC: 05HY33Z Insertion of Infusion Device into Upper Vein, Percutaneous Approach (ICD-10-PCS; 2017-09-26)
PROC: 5A2204Z Restoration of Cardiac Rhythm, Single (ICD-10-PCS; principal; 2017-09-27)
PROC: 5A1935Z Respiratory Ventilation, Less than 24 Consecutive Hours (ICD-10-PCS; 2017-09-27)
PROC: 5A12012 Performance of Cardiac Output, Single, Manual (ICD-10-PCS; 2017-09-27)
DX: Z66 Do not resuscitate; I46.9 Cardiac arrest, cause unspecified; T40.2X1A Poisoning by other opioids, accidental (unintentional), initial encounter; N28.9 Disorder of kidney and ureter, unspecified; M62.82 Rhabdomyolysis; W18.30XA Fall on same level, unspecified, initial encounter; S80.212A Abrasion, left knee, initial encounter; F17.210 Nicotine dependence, cigarettes, uncomplicated; J96.01 Acute respiratory failure with hypoxia; G93.41 Metabolic encephalopathy; T68.XXXA Hypothermia, initial encounter; E86.0 Dehydration; S80.211A Abrasion, right knee, initial encounter; E03.9 Hypothyroidism, unspecified; Z91.81 History of falling; R65.21 Severe sepsis with septic shock; R40.2432 Glasgow coma scale score 3-8, at arrival to emergency department; Y92.017 Garden or yard in single-family (private) house as the place of occurrence of the external cause; Z78.1 Physical restraint status; S90.812A Abrasion, left foot, initial encounter; S01.112A Laceration without foreign body of left eyelid and periocular area, initial encounter; E78.5 Hyperlipidemia, unspecified; G89.29 Other chronic pain; Z79.891 Long term (current) use of opiate analgesic; Z88.5 Allergy status to narcotic agent; G93.1 Anoxic brain damage, not elsewhere classified; E87.2 Acidosis; A41.9 Sepsis, unspecified organism; Z68.1 Body mass index [BMI] 19.9 or less, adult; S00.81XA Abrasion of other part of head, initial encounter; S60.511A Abrasion of right hand, initial encounter; L89.151 Pressure ulcer of sacral region, stage 1; E46 Unspecified protein-calorie malnutrition; I10 Essential (primary) hypertension; Z23 Encounter for immunization; S50.311A Abrasion of right elbow, initial encounter; N17.9 Acute kidney failure, unspecified
CPT/HCPCS: 12011; 31500; 36415; 36416; 36556; 51702; 70450; 71045; 80053; 80306; 80307; 81003; 81015; 82140; 82550; 82553; 82805; 83605; 83690; 83735; 84100; 84443; 84484; 85007; 85025; 85027; 85610; 85730; 87040; 87076; 87086; 87149; 90471; 90715; 93005; 94002; 94003; 96361; 96365; 96366; 96368; 96374; 96375; 96376; 99292; G0378; G8978-GP-CI; G8979-GP-CI; G8980-GP-CI; G8987-GO-CI; G8988-GO-CI; G8989-GO-CI; J0153; J0171; J0360; J2543; J2704; J3010; J3370; J7050; S0028